=== PATIENT | female | born 1970 | race Caucasian/White ===

== ENCOUNTER → 2020-10-29 12:44 | Outpatient (CLI) | payer BC, SELFPAY ==
--- NOTE | 2020-10-29 | DI.US.S_ITS ---
PROCEDURE: US PERIPH VENOUS LOW EXTREM RT INDICATIONS: PAIN TECHNIQUE: Real-time imaging, as well as color and pulse Doppler interrogation, were performed of the lower extremity deep veins from the inguinal ligament to the popliteal fossa. COMPARISON: None. FINDINGS: The common femoral, femoral and popliteal veins are normally compressible, and free of intraluminal thrombus. Color and pulse Doppler demonstrate normal phasic intraluminal flow. There is normal augmentation response to distal compression maneuver. A Guerra's cyst is present that measures 5.2 x 1.2 x 3 cm. IMPRESSION: Negative for deep venous thrombosis. Dictated by: Stanton Fuentes M.D. on 10/29/2020 at 12:47 Approved by: Stanton Fuentes M.D. on 10/29/2020 at 12:47
== END ==
PROVIDERS: Visit Provider Physician Assistant
DX: M79.661 Pain in right lower leg (principal); M71.21 Synovial cyst of popliteal space [Baker], right knee
CPT/HCPCS: 93971

== ENCOUNTER → 2023-03-28 13:19 | Outpatient (CLI) | payer OTHER, SELFPAY ==
--- NOTE | 2023-03-28 | DI.US.S_ITS ---
LIMITED ULTRASOUND OF RIGHT BREAST: 03/28/2023 CLINICAL: Patient returns today to evaluate an asymmetry in the right breast. Comparison is made to exam dated: 03/28/2023 mammogram - [facility]. Color flow and real-time ultrasound of the right breast 1 o'clock and 10 o'clock regions were performed. In the right breast, upper outer quadrant at 10 o'clock, 12 cm from the nipple, there is a a heterogenous fibroglandular tissue. This corresponds to focal asymmetry seen on baseline mammogram. In the right breast, upper inner quadrant at 1 o'clock, 2 cm from the nipple, there is no sonographic abnormality corresponding to focal asymmetry seen on baseline mammogram. No abnormal lymph nodes are seen in the right axilla. IMPRESSION: PROBABLY BENIGN 1) Right breast heterogenous fibroglandular tissue at 10 o'clock corresponding to mammographic focal asymmetry seen on baseline mammogram. Finding is probably benign. Recommend right breast mammogram in 6 months to demonstrate stability. 2) Right breast focal asymmetry at 1 o'clock seen on baseline screening mammogram without sonographic correlate. Finding is probably benign. Recommend right breast mammogram in 6 months to demonstrate stability. Findings and recommendations were conveyed to the patient during today's evaluation. This exam was interpreted at Station ID: [id number]. Electronically Signed By: Ama bai/:03/28/2023 23:42:54 letter sent: Followup Recommended Ultrasound BI-RADS: 3 Probably benign
--- NOTE | 2023-03-28 | DI.US.S_ITS ---
ULTRASOUND OF LEFT BREAST AND AXILLA: 03/28/2023 CLINICAL: Palpable left axilla lump. Comparison is made to exam dated: 03/28/2023 mammogram - [facility]. Color flow and real-time ultrasound of the left breast axilla were performed. No sonographic abnormality is seen in the area of clinical concern in the left axilla. IMPRESSION: NEGATIVE No sonographic abnormality in the area of clinical concern in the left axilla. No mammographic or sonographic evidence of malignancy in the left breast. Recommend routine annual mammogram screening in 1 year. Clinical follow-up is also recommended, and further management of palpable abnormalities or other focal signs or symptoms should be based on the results of clinical evaluation. If symptoms persist or become more focal in nature, further clinical evaluation should be considered. Findings and recommendations were conveyed to the patient during today's evaluation. This exam was interpreted at Station ID: [id number]. Electronically Signed By: Ama de la pazb/:03/28/2023 23:20:45 Entry: donna - 03/29/2023 13:21:15 Ultrasound BI-RADS: 1 Negative
--- NOTE | 2023-03-28 | DI.MG.S_ITS ---
BILATERAL DIGITAL DIAGNOSTIC MAMMOGRAM 3D/2D: 03/28/2023 CLINICAL: Baseline exam. Left side enlarged lymph node. Patient's baseline mammogram. There are scattered areas of fibroglandular density in both breasts (category b / 25%-50% glandular tissue). Right breast: There is a focal asymmetry in the right breast upper outer quadrant posterior depth. There is a focal asymmetry in the right breast upper inner quadrant at 1 o'clock middle depth. No other significant masses or calcifications are seen in the right breast. Left breast: No significant masses or calcifications are seen in left breast. There are morphologically normal lymph nodes in the area of clinical concern in the left axilla. The lymph nodes contain punctate hyperdensities, which are likely related to upper extremity tattoo. IMPRESSION: INCOMPLETE: NEEDS ADDITIONAL IMAGING EVALUATION Right breast: 1) Right breast upper outer quadrant posterior depth focal asymmetry. Targeted right breast ultrasound is recommended for further evaluation and is scheduled to immediately follow this examination. 2) Right breast upper inner quadrant middle depth focal asymmetry. Targeted right breast ultrasound is recommended for further evaluation and is scheduled to immediately follow this examination. Left breast: 1) No mammographic abnormality in the area of clinical concern in the left axilla. Morphologically normal left axillary lymph nodes containing punctate hyperdensities consistent with upper extremity tattoo. Targeted left axillary ultrasound is recommended for further evaluation and is scheduled to immediately follow this examination. Based on Tyrer-Cuzick model (a risk assessment model), the patient's lifetime risk is 20.3% and her 10 year risk is 5.0%. If a patient has an elevated risk, a more comprehensive evaluation should be considered and/or a referral to a genetic counselor. The [employer], [employer], and NCCN Guidelines advise the consideration of Breast MRI as an adjunct to screening mammography in patients whose Lifetime risk to develop breast cancer is 20% or higher. This exam was interpreted at Station ID: [id number]. NOTE: For mammograms, a report in lay terms will be sent to the patient. Approximately 15% of breast malignancies will not be visualized mammographically. In the management of a palpable breast mass, a negative mammogram must not discourage biopsy of a clinically suspicious lesion. Electronically Signed By: Ama de la pazb/:03/28/2023 23:16:28 ACR BI-RADS Category 0: Incomplete [id number]
== END ==
PROVIDERS: Referring Provider Physician Assistant; Visit Provider Physician Assistant
DX: R59.0 Localized enlarged lymph nodes (principal); N64.89 Other specified disorders of breast
CPT/HCPCS: 76642; 76882; 77066; G0279

== ENCOUNTER → 2023-06-25 08:56 | Outpatient (CLI) | payer OTHER, SELFPAY ==
--- NOTE | 2023-06-25 08:58 | DI.RAD.S_ITS ---
PROCEDURE: XR CERVICAL SPINE 4V OR 5V INDICATIONS: NECK PAIN TECHNIQUE: 5 views of the cervical spine acquired. COMPARISON: None. FINDINGS: Bones: No fractures or dislocations to the T1 level. Oblique images demonstrate no bony foraminal stenoses. No significant spondylitic changes identified. Soft tissues: No prevertebral soft tissue swelling. IMPRESSION: Cervical spine without acute fracture or malalignment. No significant spondylitic changes identified radiographically. Dictated by: Carlos Tan M.D. on 06/25/2023 at 9:33 Approved by: Carlos Tan M.D. on 06/25/2023 at 9:34
== END ==
PROVIDERS: PCP Registered Nurse; Referring Provider Anesthesiology; Visit Provider Anesthesiology
DX: M54.2 Cervicalgia (principal)
CPT/HCPCS: 72050

== ENCOUNTER → 2023-07-05 14:13 | Outpatient (CLI) | payer OTHER, SELFPAY | LOC: PHYS 14:14 | PROVIDERS: Family Provider Registered Nurse; PCP Registered Nurse; Referring Provider Anesthesiology; Visit Provider Anesthesiology | DX: R20.2 Paresthesia of skin (principal); R29.2 Abnormal reflex | CPT/HCPCS: 95885; 95886; 95912 ==

== ENCOUNTER → 2023-08-01 08:17 | Outpatient (CLI) | payer OTHER, SELFPAY ==
--- NOTE | 2023-08-01 08:18 | DI.MRI.S_ITS ---
PROCEDURE: MR CERVICAL SPINE WO CON INDICATIONS: Upper motor neuron signs, ataxia TECHNIQUE: Noncontrast sagittal T1 spin echo and T2 fast spin echo, sagittal STIR, foraminal oblique sagittal T2 fast spin echo, and axial gradient echo or T2 fast spin echo through the cervical spine. COMPARISON: None. FINDINGS: Image quality: Excellent. Alignment and Curvature: There is normal bony alignment. Bone Marrow: Marrow demonstrates normal overall signal. Spinal Cord: Visualized spinal cord has normal size and signal. No cerebellar tonsillar herniation. Paraspinous Soft Tissues: No paravertebral masses. Prevertebral soft tissues are normal in thickness. C2-C3: Normal appearance. C3-C4: Normal appearance. C4-C5: Normal appearance. C5-C6: Normal appearance. C6-C7: Normal appearance. C7-T1: Normal appearance. IMPRESSION: Unremarkable MRI of the cervical spine. No evidence of stenosis or intrinsic cord lesion Approved by: Eliezer Olivas M.D. on 08/01/2023 at 17:57
== END ==
LOC: MRI 08:17
PROVIDERS: Family Provider Registered Nurse; PCP Registered Nurse; Referring Provider Anesthesiology; Visit Provider Anesthesiology
DX: R20.2 Paresthesia of skin (principal); R27.0 Ataxia, unspecified; R29.2 Abnormal reflex
CPT/HCPCS: 72141

== ENCOUNTER → 2024-10-03 11:28 | Outpatient (CLI) | payer OTHER, SELFPAY ==
--- NOTE | 2024-10-03 11:33 | DI.RAD.S_ITS ---
PROCEDURE: XR HIP W PEL IF DONE RT 2V INDICATIONS: HIP PAIN TECHNIQUE: 2 views of the hip were acquired. COMPARISON: None. FINDINGS: Mild degenerative changes of the bilateral hips Kellgren Dewayne grade 1. Mild degenerative changes lower lumbar spine. No radiographic evidence of fracture, dislocation or high attenuation soft tissue foreign body. IMPRESSION: Mild degenerative changes bilateral hips. If symptoms persist or worsen, or there is high clinical suspicion of pelvic/hip abnormality, MRI could be performed. Dictated by: Scott Snowden M.D. on 10/04/2024 at 23:15 Approved by: Scott Snowden M.D. on 10/04/2024 at 23:16
== END ==
PROVIDERS: Family Provider Registered Nurse; PCP Registered Nurse; Referring Provider Nurse Practitioner Family; Visit Provider Nurse Practitioner Family
DX: M47.816 Spondylosis without myelopathy or radiculopathy, lumbar region (principal); M25.551 Pain in right hip
CPT/HCPCS: 73502

== ENCOUNTER → 2025-05-25 12:18 | Outpatient (CLI) | payer OTHER, SELFPAY ==
--- NOTE | 2025-05-25 12:25 | DI.MRI.S_ITS ---
PROCEDURE: MR HIP RT WO CON INDICATIONS: right hip pain TECHNIQUE: Noncontrast coronal T1 spin echo and STIR through the bony pelvis. Coronal and axial T2 fast spin echo with fat saturation, sagittal T1 spin echo, and oblique axial T2 fast spin echo with fat saturation through the hip. COMPARISON: None. FINDINGS: Quality: Adequate. Hip: Labrum: Anterosuperior labral tearing which may be degenerative.. Cartilage: Cartilage loss along the superolateral femoral head and marginal osteophyte formation with subchondral marrow edema like signal. Joint: Small effusion with 7 millimeter intra-articular body anteriorly. Bone: No fracture. No avascular necrosis. Muscles and tendons: Small partial tear of the common hamstring tendon origins bilaterally Bursa: Trochanteric bursa: Nondistended. Iliopsoas bursa: Nondistended. Other: Degenerative disc disease at L5-S1.. IMPRESSION: Moderate right hip osteoarthritis. Right hip effusion with intra-articular bodies. Right anterosuperior labral tearing which is likely degenerative. Small partial tears of the hamstring tendon origins. Degenerative disc disease Dictated by: French Cortez M.D. on 05/25/2025 at 15:42 Approved by: French Cortez M.D. on 05/25/2025 at 15:48
== END ==
LOC: MRI 12:19
PROVIDERS: Family Provider Registered Nurse; PCP Registered Nurse; Referring Provider Registered Nurse; Visit Provider Nurse Practitioner Family
DX: S73.191A Other sprain of right hip, initial encounter (principal); S76.811A Strain of other specified muscles, fascia and tendons at thigh level, right thigh, initial encounter; M16.11 Unilateral primary osteoarthritis, right hip; M25.551 Pain in right hip; M25.451 Effusion, right hip; M51.379 Other intervertebral disc degeneration, lumbosacral region without mention of lumbar back pain or lower extremity pain; W19.XXXA Unspecified fall, initial encounter
CPT/HCPCS: 73721